=== PATIENT | male | born 1990 | race Caucasian/White ===

== ENCOUNTER 2017-11-01 13:14 | Observation (INO) | payer SELFPAY ==
--- NOTE | 2017-11-01 14:22 | ER Document Report ---
HPI - HPI Pain Level: 5 Notes: Patient is a 27-year-old male with no significant past medical history who presents the ED complaining of swelling, redness, and discharge from his tailbone area that began 4 days ago without known injury. Patient states that he has not had any issues like this in the past. Patient states that she is still eating and drinking without any difficulties. He denies any drug allergies. Patient was never told in the past that he had any history of a pilonidal cyst. Patient states that it does hurt to sit down and put pressure to the area. The last time he ate was at 1230 this afternoon. Patient does admit to smoking but denies IV drug use. Denies any headache, fever, neck pain , URI, sore throat, chest pain, palpitations, syncope, cough, shortness of breath, wheeze, dyspnea, abdominal pain, nausea/vomiting/diarrhea, urinary retention, dysuria, hematuria, loss of control of bowel or bladder, numbness/ tingling, saddle anesthesia, muscle paralysis/weakness, or rash. - ROS Notes: REVIEW OF SYSTEMS: CONSTITUTIONAL : Denies fever, chills, or sweats. Denies recent illness. EENT: Denies eye, ear, throat, or mouth pain or symptoms. Denies nasal or sinus congestion or discharge. Denies throat, tongue, or mouth swelling or difficulty swallowing. CARDIOVASCULAR: Denies chest pain. Denies palpitations or racing or irregular heart beat. Denies ankle edema. RESPIRATORY: Denies cough, cold, or chest congestion. Denies shortness of breath, difficulty breathing, or wheezing. GASTROINTESTINAL: Denies abdominal pain or distention. Denies nausea, vomiting , or diarrhea. Denies blood in vomitus, stools, or per rectum. Denies black, tarry stools. Denies constipation. GENITOURINARY: Denies difficulty urinating, painful urination, burning, frequency, blood in urine, or discharge. MUSCULOSKELETAL: Denies back or neck pain or stiffness. Denies joint pain or swelling. SKIN: see hpi NEUROLOGICAL: Denies dizziness or lightheadedness. Denies headache. Denies weakness or paralysis or loss of use of either side. Denies problems with gait or speech. Denies sensory loss, numbness, or tingling. Denies seizures. ALL OTHER SYSTEMS REVIEWED AND NEGATIVE. Dictation was performed using Dragon voice recognition software Past Medical History - Social History Smoking Status: Current Every Day Smoker Family History: Reviewed & Not Pertinent Past Surgical History: Reports: Hx Orthopedic Surgery - Immunizations Immunizations up to date: Yes Hx Diphtheria, Pertussis, Tetanus Vaccination: No Vertical Provider Document - CONSTITUTIONAL Agree With Documented VS: Yes Notes: PHYSICAL EXAMINATION: GENERAL: Well-appearing, well-nourished and in no acute distress. A&ox4 LUNGS: Breath sounds clear to auscultation bilaterally and equal. No wheezes rales or rhonchi. HEART: Regular rate and rhythm without murmurs, rubs, gallops. ABDOMEN: Soft, nontender, nondistended abdomen. No guarding, no rebound. No masses appreciated. Normal bowel sounds present. No CVA tenderness bilaterally. No pulsatile mass. Musculoskeletal: LE's b/l: FROM to passive/active. Strength 5+/5. No focal deficits Back: FROM to passive/active. SLR neg. No vertebral point tenderness or step- offs. No SI jt tenderness. Extremities: No cyanosis, clubbing, or edema b/l. Peripheral pulses 2+. Capillary refill less than 3 seconds. NEUROLOGICAL: Cranial nerves grossly intact. Normal speech, normal gait. Normal sensory, motor exams PSYCH: Normal mood, normal affect. SKIN: + erythema & abscess to the coccyx area with purulent discharge and foul odor noted, ?pilonidal. No streaks. + tenderness. - INFECTION CONTROL TRAVEL OUTSIDE OF THE [place] IN LAST 30 DAYS: No - RESPIRATORY O2 Sat by Pulse Oximetry: 98 Course - Re-evaluation Re-evalutation: 11/01/17 14:19 Abscess to coccyx, possible pilonidal. Consult initiated with the General Surgeon, Dr. Pryor to come evaluate the patient. 11/01/17 15:03 Dr. Pryor evaluated the patient and accepted care. he will take to the OR today. - Vital Signs Vital signs: Temp Pulse Resp BP Pulse Ox 98.5 F 97 16 142/75 H 98 11/01/17 13:41 11/01/17 13:41 11/01/17 13:41 11/01/17 13:41 11/01/17 13:41 Discharge - Discharge Clinical Impression: Abscess of coccyx Condition: Stable Disposition: ADMITTED OBSERVATION Admitting Provider: Surgicalist - Dr. Pryor Unit Admitted: Surgical Floor
[2017-11-01] MEDS ORDERED: HYDROMORPHONE HCL INJ/PF 2 MG/ML AMPULE IV PRN (17:58)
[2017-11-01] MEDS ORDERED: PIPERACILLIN/TAZOBACTAM 3.375 GM VIAL IV SCH (18:00)
[2017-11-01] MEDS ORDERED: PIPERACILLIN SODIUM/TAZOBACTAM 3.375 GM in NORMAL SALINE 100 ML IV ONE (19:00)
[2017-11-01] MEDS ORDERED: LIDOCAINE 0.5% INJ-PF (5 MG/ML) 50 ML SDV ONE (19:19)
[2017-11-01] MEDS ORDERED: MIDAZOLAM 2 MG/2 ML INJ ONE ×2 (19:33→20:07)
[2017-11-01] MEDS ORDERED: FENTANYL CITRATE INJ/PF 100 MCG/2 ML AMPUL ONE (19:33)
[2017-11-01] MEDS ORDERED: HYDROMORPHONE HCL INJ/PF 2 MG/ML AMPULE ONE (19:33)
[2017-11-01] MEDS ORDERED: EPHEDRINE SULFATE INJ 50 MG/1 ML AMPULE ONE (19:34)
[2017-11-01] MEDS ORDERED: PROPOFOL INJ 200 MG/20 ML VIAL IV ONE (19:34)
[2017-11-01] MEDS ORDERED: LIDOCAINE 1% INJ-PF (10 MG/ML) 30 ML SDV ONE (19:43)
[2017-11-01] MEDS ORDERED: PROMETHAZINE HCL INJ 25 MG/1 ML VIAL IV PRN (20:24)
[2017-11-01] MEDS ORDERED: MEPERIDINE HCL/PF INJ 25 MG/1 ML DISP.SYRIN IV PRN (20:24)
[2017-11-01] MEDS ORDERED: FENTANYL CITRATE INJ/PF 100 MCG/2 ML AMPUL IV PRN ×3 (20:24)
[2017-11-01] MEDS ORDERED: DIPHENHYDRAMINE HCL 50 MG/ML VIAL IV PRN (20:24)
[2017-11-01] MEDS ORDERED: ONDANSETRON HCL INJ/PF 4 MG/2 ML SDV ONE (21:04)
--- NOTE | 2017-11-01 21:18 | OPERATIVE REPORT E ---
Operative Report NAME: HANK GONZALEZ : 1990 AGE: 27Y DATE OF SURGERY: 11/01/2017 ROOM: 419 PREOPERATIVE DIAGNOSIS: PILONIDAL ABSCESS. POSTOPERATIVE DIAGNOSIS: PILONIDAL ABSCESS. OPERATION: Incision and drainage of pilonidal abscess. SURGEON: ILANA GRANADOS M.D. ANESTHESIA: Spinal. TISSUE REMOVED OR ALTERED: INDICATIONS: This is a 27-year-old male who noted pain in the sacrococcygeal area for the past week. Went to the emergency room and noted to have an obvious pilonidal abscess. PROCEDURE: After adequate spinal anesthesia, the patient was placed in the prone jackknife position and the sacrococcygeal area prepped and draped in the usual sterile fashion. Appropriate timeout was called. There was a small opening towards the distal end of the abscess cavity and this was then probed with a hemostat, and a lot of pus extruded out. Cultures were then obtained. Next, a vertical incision angled to the left side of the patient was done. Another distal incision angled to the patient's right. More purulent material extruded out. Hemostasis obtained through the skin incision with cautery. The cavity was pulse lavaged with 3 liters of saline. No tunneling noted afterwards. There were at least 2 or 3 tunnels that were broken down with finger dissection. Hemostasis was then obtained with cautery. Next, the cavity was then packed with 1/2-inch Iodoform gauze. There was some hair on the skin edges that were subsequently pulled out with use of a hemostat. A single suture of #2 nylon was placed at the mid part of the incision, just to keep the packing in place. A sterile dressing was placed over the operative site. Needle, instrument and sponge counts were all correct, and estimated blood loss was about 40 mL. The patient was then brought to the recovery room in satisfactory condition. DICTATING PHYSICIAN: ILANA GRANADOS M.D. [id number] PHY#: [id number] ID: [id number] JOB#: [id number] ACCT: [id number] cc:ILANA GRANADOS M.D. >
[2017-11-02] MEDS: PIPERACILLIN SODIUM/TAZOBACTAM 3.375 GM in NORMAL SALINE 100 ML IV SCH ×2 (02:40→09:35)
[2017-11-02] MEDS: OXYCODONE-ACETAMINOPHEN 5-325 MG TABLET PO PRN ×3 (02:42→15:11)
[2017-11-02] MEDS: MORPHINE SULFATE 10 MG/ML INJ IV PRN ×2 (06:20→14:05)
[2017-11-02 14:48] VITALS: BP 103/45
== END 2017-11-02 15:30 | disposition home or self-care (01) ==
LOC: ER 13:14 → EH 15:20 → 4W 17:29
PROVIDERS: ATTEND Surgery
PROC: 0H98XZZ Drainage of Buttock Skin, External Approach (ICD-10-PCS; principal; 2017-11-01 20:00)
DX: L05.01 Pilonidal cyst with abscess (principal); F17.210 Nicotine dependence, cigarettes, uncomplicated
CPT/HCPCS: 99284; 87070; 87205; 87075; 87077; 10080; J2250; J3010; J2270; J1170; J2405; J2704; J2543 ×2; 902; J3490